=== PATIENT | female | born 1985 | race Caucasian/White ===

== ENCOUNTER 2019-01-06 14:18 | Outpatient (RCR) | payer OTHER, MEDICAID, SELFPAY ==
--- NOTE | 2019-01-06 15:26 | HP.PTEVAL_ITS ---
Patient's Visit Information WILFRED VERONICA is a 33 year old F referred to Physical Therapy by Baltazar Swann MD with a diagnosis of STRESS FRACTURE PROMIAL FEMURS. Date of Evaluation: 01/06/19 Physical Therapist: Micheal Flores PT, Cert MDT, OCS - Visit Plan Plan: D/C - Subjective Findings: This 33 y/o female presenst to physical therapy with stress fracture right femur 7 weeks,. Patient had right groin. Aggraveting factors with weight bearing with walking/standing. Patient seen DR recommended patient to be NWB RLE using walker ,crutches. MD wants patient to to be NWB for 6 weeks . Patien had x-rays and MRI showed stresss fracture. Patient has paeatheia/tingling when walking . Patient has 10 step inside with walker. SOCAIL: . VOCATION: grocery store bagger and secetary - Pain Right Hip Pain Intensity (Out of 10): 7 Pain Intensity Range: 10 - Objective POSTURE:mild foward posture. GAIT: ambulates with antalgic gait. BALANCE : GOOD-. NEURO: intact. AROM HIP : limited by pain. MMT: quads/hams 4-/5 ,3/5 NT MMT - Goals Goal 1:: Patient to be educated on crutch training /walker with NWB RLE. Goal Time Frame: 1 VISIT - Rehabilitation Potential Physical Therapy Diagnosis: Patient has stress fracture right femus and needded to be educated on how to use crutches and waklker with NWB RLE Rehabilitation Potential: Fair - Anticipated Interventions Patient/Client Instruction: Educate patient on: Condition Other: CRUTCH /WALKER TRAINING Functional Training to Include: Gait training Other: CRUTCHES /WALKER Thank you for the opportunity to evaluate your patient. For Medicare and Medicare HMO plans, please review the plan of care and approve it. It will need to be FAXED BACK to us at [phone] for Medicare purposes. For Medicare only, by signing this I certify the plan of care. Please let me know if there are questions or concerns regarding this plan of care. Physician Signature: Date:
== END 2019-01-06 19:00 | disposition home or self-care (01) ==
LOC: PT 14:18
PROVIDERS: Referring Provider Specialist; Visit Provider Specialist
DX: M84.351D Stress fracture, right femur, subsequent encounter for fracture with routine healing (principal)
CPT/HCPCS: 97162